=== PATIENT | male | born 1955 | race Caucasian/White ===

== ENCOUNTER 2016-10-05 05:22 | Emergency (ER) | payer OTHER ==
[~2016-10-05] VITALS: Ht 185.4 cm; Wt 63.6 kg
[~2016-10-05 05:22] MED LIST: INSLIS SUBQ; INSU100I13 SUBQ; LEVO25TA5 PO; LISI-571 PO; METO25TA6 PO; PANT40TA3 PO
[2016-10-05 05:29] VITALS: BP 186/105; PULSE 98; RESP 20; O2SAT 99
[2016-10-05 05:53] LABS: BASOPHILS % (AUTO) 0.4 % (0-3); EOSINOPHILS % (AUTO) 4.3 % (0-5); MONOCYTES % (AUTO) 10.9 % (4-12); Mean Corpuscular Hemoglobin 30.4 pg (27.0-35.0); Mean Corpuscular Volume 92.7 fL (81-100); NEUTROPHILS % (AUTO) 64.8 % (40-74); Platelet Count 290 bil/L (150-400)
--- NOTE | 2016-10-05 05:59 | ED.REPORT ---
HPI-Chest Pain 40 and Over Date of Service Oct 05, 2016 ED Provider: Katerin Fang MD The pt is a 61 y/o male w/ a hx of diabetes presenting to the ED complaining of R scapular pain onset 6 hours ago. He describes the pain as being a 2.5-3 inch diameter area under his R scapula that feels like a pinched nerve. The pain woke him up in the middle of night and has been fading but he is continuing to experience it. The pt does not recall doing anything specific to cause the pain and is able to feel something pulling when he moves his head around. Denies SOB, diaphoresis, or nausea. The pt has applied Icy Hot to help relieve the pain. 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 He would see a chiropractor who would relieve the pain but it would return 6 months later. The pt also reports his weight being lower than he would like for the last two years and has broken his R collarbone twice. Nursing Notes Stated Complaint: SHOULDER PAIN Chief Complaint: R scapular pain Nursing Notes Reviewed: Yes Allergies: Coded Allergies: No Known Allergies (Verified Allergy, Unknown, 10/05/16) Scheduled Insulin Glargine (Lantus U100 Solostar Insulin Pen) 100 Unit/1 Ml Inj 25 UNIT SUBQ DAILY Insulin Glargine (Lantus U100 Solostar Insulin Pen) 100 Unit/1 Ml Inj 20 UNIT SUBQ HS Insulin Human Lispro (HumaLOG U100 Insulin Vial) 100 Unit/Ml Inj 0 UNIT SUBQ WMHS 5 units prandial with each meal, with additional per medium dose sliding scale algorithm Levothyroxine (Levothyroxine) 25 Mcg Tablet 25 MCG PO DAILYAC Lisinopril (Lisinopril) 5 Mg Tablet 2.5 MG PO DAILY Metoprolol Tartrate (Metoprolol Tartrate) 25 Mg Tablet 12.5 MG PO BID Pantoprazole DR (Pantoprazole DR) 40 Mg Tablet 40 MG PO DAILYAC General Time Seen by MD: 05:59 Chief Complaint Other (R scapular pain ) Hx Obtained From: Patient Arrived By: Walk-in Sudden in Onset?: Yes Onset Occurred: 5 - 8 hours ago Symptom Duration: Since onset Recent Healthcare: No recent hospitalization, Recent doctor visit Similar Sx Previous: Yes Past Medical History Past Medical History Alcoholism 2x broken R collarbone Reports: Diabetes mellitus Past Surgical History Partial thyroidectomy Smoking History Former Smoker Social History Pt reports chewing tobacco Alcohol Use: 1-3 per day Drug Use: Denies drug use Other Social History: Ambulatory Status Independent Review of Systems R scapular pain; Loss of weight over the last two years; Respiratory: Denies: Shortness of breath GI: Denies: Nausea Skin: Denies Diaphoresis Complete sys rev & neg: except as marked. Physical Exam Initial Vital Signs Vital Signs (First) Date Time Temp Pulse Resp B/P Pulse Ox O2 Delivery O2 Flow Rate FiO2 10/05/16 05:29 36.5 98 20 186/105 99 Room Air Initial VS: Reviewed Head / Eyes: Atraumatic, Normocephalic, PERRL ENT: Mucous membranes moist, Conjunctiva normal, No scleral icterus Neck: Supple, Non-tender, Full range of motion Extremities: Vascular intact, Neuro intact, No swelling, No tenderness Skin: Warm, Dry, No cyanosis Neurologic: Alert, Oriented, Nonfocal Psychiatric: Mood/affect normal, Behavior normal, Normal thought content General/Constitutional: Awake, Alert Respiratory / Chest: Atraumatic, Breath sounds NL, Breath sounds = bilat Cardiovascular: Heart rate NL, Regular rhythm, Heart sounds NL Abdomen: Atraumatic, Soft, Non-tender Interpretation & Diagnostics Lab Results Interpretation Result Diagram: 10/05/16 0540 10/05/16 0540 Test 10/05/16 05:40 White Blood Count 7.2th/mm3 (3.8-10.1) Red Blood Count 3.82mil/mm3 (4.40-5.80) Hemoglobin 11.6g/dL (13.8-17.2) Hematocrit 35.4% (41.0-50.0) Mean Corpuscular Volume 92.7fL (81-100) Mean Corpuscular Hemoglobin 30.4pg (27.0-35.0) Mean Corpuscular Hemoglobin Concent 32.8% (32.0-37.0) Red Cell Distribution Width 13.3% (12.3-15.4) Platelet Count 290bil/L (150-400) Neutrophils (%) (Auto) 64.8% (40-74) Lymphocytes (%) (Auto) 19.0% (14-46) Monocytes (%) (Auto) 10.9% (4-12) Eosinophils (%) (Auto) 4.3% (0-5) Basophils (%) (Auto) 0.4% (0-3) D-Dimer 0.70mg/L FEU (<0.50) Sodium Level 141mEq/L (134-144) Potassium Level 4.2mEq/L (3.5-5.2) Chloride Level 106mEq/L (97-108) Carbon Dioxide Level 21mmol/L (18-29) Blood Urea Nitrogen 13mg/dL (8-27) Creatinine 0.83mg/dL (0.76-1.27) Estimat Glomerular Filtration Rate 99mL/min (>59) Glucose Level 119mg/dL (60-99) Calcium Level 9.7mg/dL (8.5-10.1) Magnesium Level 1.8mg/dL (1.6-2.6) Total Bilirubin 0.2mg/dL (0.0-1.2) Aspartate Amino Transf (AST/SGOT) 15U/L (0-50) Alanine Aminotransferase (ALT/SGPT) 12U/L (0-44) Alkaline Phosphatase 100U/L (25-160) Troponin T 0.010ug/L (0.0-0.011) Total Protein 7.4g/dL (6.4-8.4) Albumin 3.8g/dL (3.4-5.0) Hold Amanda Top Tube Received (Received) ECG Interpretation ECG Interpretation: Rate 100 Sinus tachycardia Anterior infarct, old Time: 05:41 Interpreted by: ED physician CT Chest Interpretation IMPRESSION: 1. No evidence for central pulmonary embolism. 2. No acute pulmonary disease. 3. Lateral left fifth rib osteochondroma, a potential cause of pneumothorax. 4. Nonacute healed posterior left third rib fracture. 5. 3 mm nonobstructing left renal stone. Dictated by: Hilario Mcmahon M.D. on 10/05/2016 at 7:50 Approved by: Hilario Mcmahon M.D. on 10/05/2016 at 8:00 Study type: CT pulm angiogram Interpretation / Wet Read by: Interpret - Radiologist Re-Eval/Medical Decision Source of Hx: Old records Time of Eval: 06:43 Re-Evaluation/Progress Note: Rechecked pt. Discussed CXR results and plans for a CT. Time of Eval: 07:18 Re-Evaluation/Progress Note: Pt chose to leave AMA Counseled Regarding: Diagnosis, Lab results, Need for follow-up, When/why to return to ED Discharge & Departure Primary Impression: Chest pain Chest pain type: unspecified Qualified Code: R07.9 - Chest pain, unspecified Disposition: Home Discharge Condition All VS Reviewed: Yes Condition: Stable Additional Instructions: Though the patient left without receiving written instructions, I did tell him that our investigation today included evaluation for heart attack, pulmonary embolism, chest x-ray abnormality such as pneumothorax, aortic dissection, lung mass or broken rib. I told him that all these things were reassuring and there was no evidence of a dangerous health condition. I encouraged him to follow up with his primary care provider which she agreed to do. Referrals: Aleah Nieves (PCP) Scribe Attestation Portions of this note were transcribed by Jeff Munoz. I, Dr. Conklin personally performed the history, physical exam and medical decision-making; I reviewed and confirmed the accuracy of the information in the transcribed note. copies to: Aleah Nieves Kirk H MD Oct 05, 2016 05:59 Jeff Munoz Oct 05, 2016 06:37
[2016-10-05 06:16] LABS: TROPONIN T 0.01 ug/L (0.0-0.011)
[2016-10-05 06:25] VITALS: BP 166/110; PULSE 90; RESP 16; O2SAT 98
[2016-10-05 06:28] LABS: Magnesium 1.8 mg/dL (1.6-2.6)
[2016-10-05 07:15] VITALS: BP 167/84; PULSE 94; RESP 12; O2SAT 100
--- NOTE | 2016-10-05 08:01 | DRSVH ---
PROCEDURE: CT ANGIO CHEST PULMONARY EMBOLISM ([id number]) INDICATIONS: 61-year-old male with pleuritic chest pain. TECHNIQUE: After the administration of intravenous contrast, 2 mm thick sections acquired from the pulmonary api melissa to the posterior costophrenic angles. 3-dimensional maximum intensity projection (MIP) coronal a nd sagittal reformats were then acquired through the thorax. For radiation dose reduction, the follo wing was used: automated exposure control, adjustment of mA and/or kV according to patient size. COMPARISON: None. FINDINGS: Preliminary interpretation rendered by [facility]. Image quality: Excellent. Pulmonary arteries: Pulmonary arteries are normal in size, and demonstrate no intraluminal filling d efects to suggest central pulmonary embolism. Lungs and pleura: Lungs are clear, except for dependent atelectasis. No pleural effusions or pneumo thorax. Central and peripheral airways are patent. Mediastinum: Heart size is normal, without pericardial effusion. No mediastinal or hilar adenopathy . Thoracic aorta is normal in caliber and enhancement. Esophagus is normal in caliber, without hiat al hernia. Bones and chest wall: No suspicious bony lesions. Ribs and thoracic spine appear intact throughout, with nonacute healed posterior left third rib fracture. On sagittal image 9, lateral left fifth rib osteochondroma is also noted. Thyroid gland is surgically absent. No axillary or supraclavicular ad enopathy. Abdomen: 3 mm nonobstructing left renal stone is present. Other visualized upper abdominal solid org ans appear normal in the early arterial phase of enhancement. IMPRESSION: 1. No evidence for central pulmonary embolism. 2. No acute pulmonary disease. 3. Lateral left fifth rib osteochondroma, a potential cause of pneumothorax. 4. Nonacute healed posterior left third rib fracture. 5. 3 mm nonobstructing left renal stone. Dictated by: Hilario Mcmahon M.D. on 10/05/2016 at 7:50 Approved by: Hilario Mcmahon M.D. on 10/05/2016 at 8:00
--- NOTE | 2016-10-05 08:29 | DRSVH ---
PROCEDURE: X-RAY CHEST ONE VIEW, PORTABLE ([id number]) INDICATIONS: 61 year-old male with chest pain. TECHNIQUE: One view of the chest was acquired. COMPARISON: [facility], , CHEST 2VW, 07/29/2006, 12:55. FINDINGS: Surgical changes and devices: Thoracic outlet surgical clips are again noted, presumably from thyroid ectomy. Lungs and pleura: No pleural effusions or pneumothorax. Lungs are clear. Mediastinum: Mediastinal contours appear normal. Heart size is normal. Bones and chest wall: No suspicious bony lesions. Overlying soft tissues appear unremarkable. IMPRESSION: No acute cardiopulmonary disease. Dictated by: Hilario Mcamhon M.D. on 10/05/2016 at 8:27 Approved by: Hilario Mcmahon M.D. on 10/05/2016 at 8:28
== END 2016-10-05 07:44 | disposition left against medical advice (07) ==
LOC: SED 05:22
DX: R07.9 Chest pain, unspecified (principal); M25.511 Pain in right shoulder; E11.9 Type 2 diabetes mellitus without complications; Z79.4 Long term (current) use of insulin; Z87.891 Personal history of nicotine dependence
CPT/HCPCS: 36415; 71010; 71275; 80053; 83735; 84484; 85025; 85378; 93005; 99285; Q9967